=== PATIENT | male | born 1995 | race African-American/Black ===

== ENCOUNTER 2021-04-27 12:14 | Emergency (ER) | payer SELFPAY ==
[2021-04-27 12:31] VITALS: BP 100/59; PULSE 78; TEMP 98.4; BMI 28.5
[2021-04-27 14:16] LABS: SYPHILIS W/ RPR CONF NON-REACTIVE (NONREACTIVE)
[2021-04-27 14:44] LABS: HIV INTERPRETATION NEGATIVE (NEGATIVE)
== END 2021-04-27 14:38 | disposition home or self-care (01) ==
LOC: JERFT 12:14
PROC: 3E0234Z Introduction of Serum, Toxoid and Vaccine into Muscle, Percutaneous Approach (ICD-10-PCS; principal; 2021-04-27)
DX: Z11.3 Encounter for screening for infections with a predominantly sexual mode of transmission (principal)
CPT/HCPCS: 36415; 86780; 87389; 87491; 87529; 87591; 99284-25